=== PATIENT | male | born 1945 | race Caucasian/White ===

== ENCOUNTER 2017-10-31 16:08 | Emergency (ER) | payer OTHER, MEDICARE ==
[~2017-10-31] VITALS: Ht 180.3 cm; Wt 94.3 kg
--- NOTE | ~2017-10-31 | EKG ---
[address] [address] ELECTROCARDIOGRAM REPORT Name: DINO JOHNSON Room #: [facility]#: [id number] Admission: 10/31/17 Attend Phys: Discharge: 10/31/17 Date of : 47 Report #: [id number] THIS REPORT FOR: //name// [facility] [place], [place] ED Test Date: 2017-10-31 Test Time: 16:14:47 Pat Name: DINO JOHNSON Department: Room: Gender: [employer] Manager: [employer] : 1945 Requested By: Mahesh Hinds Order Number: [id number] MD: Michael Charles Measurements Intervals [place] Rate: 80 P: NC: QRS: 111 QRSD: 144 T: 35 QT: 471 QTc: 544 Interpretive Statements Atrial-sensed ventricular-paced complexes No further analysis attempted due to paced rhythm No previous ECG available for comparison Electronically Signed On 11-01-2017 19:14:17 CDT by Michael Charles [email or web address] <ELECTRONICALLY SIGNED> By: Michael Charles MD, [facility] 11/01/17 1914 1614 1614 Michael Charles MD, FACC /EPI
[2017-10-31 16:34] LABS: ABSOLUTE NEUTROPHILS 10.7 thou/uL (1.4-8.2); BASOPHILS 0.9 % (0.0-2.0); EOSINOPHILS 2.5 % (0.0-3.0); HEMATOCRIT 38.8 % (42.0-52.0); HEMOGLOBIN 12.6 gm/dL (14.0-18.0); MCH 25.6 pg (26.0-34.0); MCHC 32.5 g/dL (28.0-37.0); MCV 78.6 fL (80.0-100.0); MONOCYTES 10.2 % (1.0-8.0); PLATELET COUNT 309 thou/uL (150-400); POLYS 73.4 % (36.0-66.0); RBC 4.93 mil/uL (4.50-6.00); RDW 16.4 % (10.5-14.5); WBC 14.6 thou/uL (4.0-11.0)
[2017-10-31 16:41] LABS: ANION GAP 6 mmol/L (7-16); BUN 18 mg/dL (7-18); CALCIUM 9.3 mg/dL (8.5-10.1); CHLORIDE 102 mmol/L (98-107); CO2 28 mmol/L (21-32); GLUCOSE 114 mg/dL (74-106); SODIUM 136 mmol/L (136-145)
[2017-10-31] MEDS ORDERED: FLOMAX0.4 MG PO (16:47)
[2017-10-31] MEDS ORDERED: ATORVASTATIN CA40 MG PO (16:47)
[2017-10-31] MEDS ORDERED: VENTOLIN HFA 1818 GM INH (16:47)
[2017-10-31] MEDS ORDERED: SINGULAIR 10 MG10 M1 PO (16:47)
[2017-10-31] MEDS ORDERED: LISINOPRIL5 MG PO (16:48)
[2017-10-31] MEDS ORDERED: OXYCODONE-ACET1 EACH PO (16:48)
[2017-10-31] MEDS ORDERED: GLUCOPHAGE XR500 MG PO (16:48)
[2017-10-31] MEDS ORDERED: ALLOPURINOL 30300 M1 PO (16:48)
[2017-10-31] MEDS ORDERED: LASIX 40 MG TAB40 M2 PO (16:49)
[2017-10-31] MEDS ORDERED: SORINE 80 MG TA80 M1 PO (16:49)
[2017-10-31] MEDS ORDERED: TOPROL XL25 MG PO (16:49)
[2017-10-31] MEDS ORDERED: FLONASE 0.05%50 MCG NASAL (16:57)
[2017-10-31] MEDS ORDERED: POTASSIUM20 PO (16:57)
[2017-10-31 17:30] LABS: TROPONIN-I < 0.04 ng/mL (<0.06)
[2017-10-31] MEDS ORDERED: NAPROXEN SODIU220 MG PO (18:33)
[2017-10-31] MEDS ORDERED: NORCO 5-325 TA1 EACH PO (18:33)
== END 2017-10-31 19:15 | disposition home or self-care (01) ==
LOC: ER 16:08
PROVIDERS: Emergency Medicine
DX: M94.0 Chondrocostal junction syndrome [Tietze] (principal); E11.9 Type 2 diabetes mellitus without complications; I10 Essential (primary) hypertension; Z87.891 Personal history of nicotine dependence